=== PATIENT | male | born 1955 | race Caucasian/White ===

== ENCOUNTER 2023-01-03 15:32 | Emergency (ER) | payer MEDICARE ==
[~2023-01-03] VITALS: Ht 185.4 cm; Wt 86.4 kg
[2023-01-03 16:51] VITALS: BP 141/81; PULSE 63; TEMP 98.2; O2SAT 98
[2023-01-03] MEDS ORDERED: oxyCODONE/APAP 10/325mg tablet PO ONE ×2 (18:20)
[2023-01-03] MEDS ORDERED: OXYC-150 PO (18:26)
[2023-01-03 19:04] VITALS: RESP 15
--- NOTE | 2023-01-03 19:10 | NUR ---
PT RECEIVED 1 TAB PERCOCET . HANDED PT PERCOCET PRESCRIPTION.
== END 2023-01-03 19:14 | disposition home or self-care (01) ==
LOC: ER 15:34
DX: S22.41XA Multiple fractures of ribs, right side, initial encounter for closed fracture (principal); W18.39XA Other fall on same level, initial encounter; Y93.89 Activity, other specified; Y92.89 Other specified places as the place of occurrence of the external cause; Y99.8 Other external cause status
CPT/HCPCS: 70450; 70486; 71250; 72125; 99284